=== PATIENT | female | born 1955 | race African-American/Black ===

== ENCOUNTER 2019-08-11 11:44 | Inpatient (IN) | payer OTHER ==
[~2019-08-11] VITALS: Ht 152.4 cm; Wt 70.8 kg
--- NOTE | ~2019-08-11 | P ---
[facility] [place] [address] PROCEDURE REPORT Name: MOUNA RODRIGUEZ Room #: [address] [place] [address] IN M.R.#: [id number] Admission: 08/11/19 Attend Phys: Nir Manzo MD Discharge: 08/15/19 Date of : 51 Report #: [id number] THIS REPORT FOR: //name// CC: Carolyn GALICIA unknown Nir Manzo RIGHT FEMORAL ARTERIAL LINE PLACEMENT REASON: Sepsis and hypotension. SUBJECTIVE: The patient is in the ICU. The right groin was prepped and draped in a sterile manner. I placed a 5-Nepali right femoral sheath through the right femoral artery. This was done without complication. This was sutured in place. The patient tolerated this procedure well. IMPRESSION: Successful right femoral arterial line placement (for sepsis and lactic acidosis). By: [id number] /gael
--- NOTE | ~2019-08-11 | HC ---
[facility] [place] [address] CONSULTATION Name: MOUNA RODRIGUEZ Room #: [facility] IN M.R.#: [id number] Admission: 08/11/19 Attend Phys: Nir Manzo MD Discharge: 08/15/19 Date of : 51 Report #: [id number] THIS REPORT FOR: //name// CC: Carolyn House FAM unknown Nir Manzo HISTORY OF PRESENT ILLNESS: The patient is a 63-year-old female who had been admitted here a few days ago having some progressive dyspnea, shortness of breath and now significant lactic acidosis, intubated somewhat urgently and a troponin of 11 with nonspecific EKG changes. She is in acute renal failure with no urinary output. Markedly elevated lactate level and a potassium of 5.2. Nephrology is also consulted. She was initially admitted with community-acquired pneumonia. Obviously, has failed until this point, had been on BiPAP and now intubated. It was felt that she had impending sepsis and now in fact is septic. MEDICATIONS: Her home medications have been Micardis, amlodipine, multivitamins, Mucinex, simvastatin, albuterol and chlorthalidone. PAST MEDICAL HISTORY: Positive for hypertension, hypercholesterolemia, some DJD, some COPD. ALLERGIES: No known drug allergies. SOCIAL HISTORY: She was hospitalized in [place] , but her brother is the [facility] and he lives down here, so she subsequently transferred here on the . I am not able to obtain alcohol or tobacco use. FAMILY HISTORY: I am not able to obtain. REVIEW OF SYSTEMS: I am not able to obtain. PHYSICAL EXAMINATION: GENERAL: She is sedated. She is intubated. She is on pressor support now. VITAL SIGNS: Pulse is 130s, blood pressure 100/90-100 systolic. HEENT: Eyes show xanthelasmas. Pharynx has dry mucous membranes. She is intubated. NECK: Has upstroke slightly diminished, cannot evaluate for JVD. LUNGS: Clear anteriorly. Distally, diminished in the bases on the lateral bases. CARDIOVASCULAR: Tachycardic, S1 and S2 distant. ABDOMEN: Slightly distended. There is retraction. EXTREMITIES: Reveal trace of edema. Distal pulses diminished. NEUROLOGIC: Sedated and hypotensive. SKIN: Appears to be warm and dry. There are no open wounds. [facility] [address] [place] [address] CONSULTATION Name: MOUNA RODRIGUEZ Room #: [address] [place] [address] IN M.R.#: [id number] Admission: 08/11/19 Attend Phys: Nir Manzo MD Discharge: 08/15/19 Date of : 51 Report #: [id number] ASSESSMENT: 1. Sepsis with lactic acidosis. 2. Hypotension secondary to above, requiring pressor support. 3. Elevated troponin of unclear significance (echo from 3 days ago showed left ventricular hypertrophy and preserved left ventricular function. We will repeat abbreviated echo. 4. Hypertension. 5. Community-acquired pneumonia. RECOMMENDATIONS AND PLAN: EKG has nonspecific changes. I will repeat an abbreviated echo in the morning, then EKG. We are going to place a femoral art-line to help with the pressor support. Dr. Sharma of Nephrology spoke with the brother who is DPOA. I believe we are still treating. I am not sure of the code status, but we will clear this up. No indication to take her to the catheterization lab at this time. We will repeat troponin, EKG and echo in the a.m. Certainly, the patient is in grave positon right now. Her prognosis is certainly guarded. I will follow with you. Thank you for allowing me to participate in the care of this patient. By: [id number] /nt
--- NOTE | ~2019-08-11 | HC ---
[facility] [place] [address] CONSULTATION Name: MOUNA RODRIGUEZ Room #: [address] [place] [address] IN M.R.#: [id number] Admission: 08/11/19 Attend Phys: Nir Manzo MD Discharge: 08/15/19 Date of : 51 Report #: [id number] THIS REPORT FOR: //name// CC: Carolyn House FAM unknown Nir Manzo DATE OF SERVICE: 08/15/2019 NEPHROLOGY CONSULTATION REASON FOR CONSULTATION: Acute kidney injury with oligoanuria. HISTORY OF PRESENT ILLNESS: This is a 63-year-old female who has a recent history of pneumonia. This was originally diagnosed as acute community-acquired pneumonia and she was admitted to the hospital in [place], [place], on 08/07/2019. There was some report that she started improving for a while after that, but there was concern from family including her brother who lives here in [place] and he is her medical durable power of admitted attorneys. She was transferred here to the [place] to [facility] for additional care. She was admitted here on 08/11/2019. She was continued on broad-spectrum antibiotics. She eventually had a thoracentesis, which showed significant amount of red blood cells. Cultures have been negative. She was about the same, maybe slightly improved until yesterday when she began having increasing oxygenation requirements and increasing dyspnea. Also, during that time, she developed some hypotension. Review of her vital signs shows that blood pressures were good yesterday, but this morning they began dropping. She was admitted to the Intensive Care Unit this morning and intubated. She began developing pressures in the 80s range, sometimes in the 90s range, occasionally as low as the 70s. She was given some additional IV fluid. She was started on some Levophed. She is now on 24 mcg of Levophed. She was intubated and then began having some frothy bloody pulmonary secretions. She underwent bronchoscopy with Dr. Gomez, who reported she did not have a lot of purulent secretions. She did not have much in the way of pulmonary edema secretions at that time either. Over the past couple of hours, she has continued to deteriorate. She has developed the labs as noted below. That includes a rising creatinine level, worsening metabolic acidosis with an increasing lactate level. She continues to have leukocytosis as noted. She has now been put on meropenem and linezolid for even broader antibiotic coverage. PAST MEDICAL HISTORY: Hypertension, and looks like at home, she had been on a combination of telmisartan and amlodipine and also some chlorthalidone. Her brother tells me she was given a diagnosis of chronic kidney disease stage 3, which would be fitting with her creatinine level of 1.2 prior to admission. No previous cardiac history and she had an echocardiogram done earlier on admission, which actually showed mild LVH, but fairly good left ventricular [address] [address] CONSULTATION Name: MOUNA RODRIGUEZ Room #: 243-[facility] IN M.R.#: [id number] Admission: 08/11/19 Attend Phys: Nir Manzo MD Discharge: 08/15/19 Date of : 51 Report #: [id number]. MEDICATIONS: At this time include Levophed 24 mcg per minute, linezolid and meropenem. She has gotten some IV bicarbonate. She has also gotten some Solu-Medrol. She got some sedation with her intubation. I cannot find that she has received any contrast exposures. SOCIAL HISTORY: The patient is single, lives in [place], [place]. Her brother, who is her medical power of admitted attorneys, lives here in [place], which is why she got transferred here. REVIEW OF SYSTEMS: Only positive for what are listed above. She is unable to provide me any other history because obviously she is sedated and intubated currently. PHYSICAL EXAMINATION: GENERAL: Acutely ill-appearing 63-year-old female. She is sedate on the ventilator. HEENT: Pupils are 4 mm and reactive. Sclerae nonicteric. She is orally intubated. CHEST: Shows coarse breath sounds with rales bilaterally and diffusely. HEART: Has a regular tachycardia. ABDOMEN: Nondistended. Bowel sounds are absent. I cannot palpate or percuss any organomegaly or masses. They just did a scan of her bladder, which showed a Duarte catheter in place, but no urine. Renal ultrasound was done, which was unremarkable and I have reviewed those images. EXTREMITIES: Show vasoconstricted cool extremities. She has a trace bilateral lower extremity edema. She has diminished peripheral pulses. I see no rashes. RADIOLOGY DATA: Chest x-ray shows changes of pulmonary edema. LABORATORY DATA: From this afternoon, sodium 144; potassium 5.2; chloride 106; bicarbonate 18; BUN 31; creatinine 2.1, which was up from 1.2 24 hours ago. Glucose 149. AST yesterday 64. Today, calcium 8.7, phosphorus 2.2, magnesium 1.8, total protein 7.1, albumin 2.2. Lactate is up to 9.0. Troponin 11.38. White count 29.7; hemoglobin 8.8; hematocrit 27.2; platelets 63,000, down from 203. Differential on the white count is 67 neutrophils, 13 bands, 7 lymphs, 8 monos, 3 metamyelocytes, 2 myelocytes, 3 nucleated red cells. Most recent blood gas pH 7.105, pCO2 of 29.6, pO2 of 103.2, bicarbonate was only 9.1 on that calculated gas. Lactate is up to ____. ASSESSMENT: 1. Fulminant shock, most likely of a septic variety. White count is up. She has an increasing lactic acidosis due to underperfusion. She has had broadening of her antibiotic coverage. She is getting more acidotic and is more hemodynamically unstable. She has been hypotensive throughout the day, but is [facility] [address] [place] [address] CONSULTATION Name: MOUNA RODRIGUEZ Room #: [facility] IN M.R.#: [id number] Admission: 08/11/19 Attend Phys: Nir Manzo MD Discharge: 08/15/19 Date of : 51 Report #: [id number] on maximum Levophed now and we will add additional vasopressors as needed including vasopressin, uncertain if there is another etiology other than her pulmonary findings. Abdominal exam is rather unremarkable. 2. Acute renal failure with anuria today. She had good urine output prior to that. Creatinine level is increasing. Borderline hyperkalemia, again she is massively acidotic. I have given her another bolus of Lasix at 100 mg and we will see if she gets any response, but this lady will need dialysis including continuous renal replacement therapy. We will get her started on that tonight. We will try to get her stabilized a bit from both the blood pressure and acidosis standpoint. 3. Respiratory failure, now on the ventilator with pulmonary edema as her most recent change in this recent pneumonia and pleural effusion. PLAN: 1. Again, we will get a dialysis catheter put in her right now at the bedside. I will do that. We will then start her on some CRRT this evening. 2. I have discussed this. I spoke with her brother about this on the telephone and he agrees to proceed with the dialysis. We will follow along very closely with this critically ill patient. By: [id number] Saturnino Sharma MD /nt
[2019-08-11 12:22] VITALS: BP 147/89
[2019-08-11] MEDS ORDERED: CALCIUM 600 +1 EAC2 PO (13:15)
[2019-08-11] MEDS ORDERED: CHLORTHALIDONE25 MG PO (13:16)
[2019-08-11] MEDS ORDERED: FLONASE 0.05%50 MCG NARES (13:18)
[2019-08-11] MEDS ORDERED: MICARDIS 80 MG80 MG PO (13:23)
[2019-08-11] MEDS ORDERED: NORVASC5 M1 PO (13:25)
[2019-08-11] MEDS ORDERED: THERAPEUTIC M PO (14:19)
[2019-08-11] MEDS ORDERED: HAIR, SKIN & N1 EAC3 PO (14:21)
[2019-08-11] MEDS ORDERED: MUCINEX600 MG PO (14:21)
[2019-08-11] MEDS ORDERED: PROAIR HFA8.5 GM INH (14:22)
[2019-08-11] MEDS ORDERED: SIMVASTATIN80 MG PO (14:22)
--- NOTE | 2019-08-11 14:31 | NUR ---
INITIAL ASSESSMENT: JOAN reviewed chart and spoke with nursing and attending physician. Pt was a direct admission from [facility] today. Pt was transported via ambulance. SW met with pt at bedside due to questions regarding her insurance. Introduced role of SW. Pt is alert/orientated x 4. Pt reports she was admitted to the hospital in [place], [place] on 08/07. Pt states she was transferred her due to location to her brother, David. Pt was living at home alone in an apt. Pt was independent with ADLs and does not use any DME. Pt was not on O2 prior to hospitalization. Pt is on 5L continuously. Pt's PCP is Dr. Morris Darnell. SW asked for pt's insurance card to verify info in the computer. Pt presented [employer] HMO card and [employer]. Pt states she also has [place] Medicaid, but does not have that card with her. JOAN made copies and discussed with UR RN, who sent info to registration. Copy of cards on pt's chart. Pt states she is unsure of her discharge plan at this time. PT/OT ordered to evaluate pt. ID consulted due to pneumonia/sepsis. SW is following to assist as needed with discharge planning.
[2019-08-11 16:08] VITALS: BP 133/86
[2019-08-11 18:54] LABS: HEMATOCRIT 26.3 % (37.0-47.0); HEMOGLOBIN 8.4 gm/dL (12.0-15.0); MCH 27.3 pg (26.0-34.0); MCV 85.2 fL (80.0-100.0); RBC 3.09 mil/uL (4.20-5.00); RDW 13.9 % (10.5-14.5); WBC 13.8 thou/uL (4.0-11.0)
[2019-08-11 19:13] LABS: ALBUMIN 2.3 g/dL (3.4-5.0); CALCIUM 8.6 mg/dL (8.5-10.1); CREATININE 1.1 mg/dL (0.6-1.0); MAGNESIUM 1.2 mg/dL (1.8-2.4); POTASSIUM 3.4 mmol/L (3.5-5.1); TOTAL BILIRUBIN 0.5 mg/dL (<0.1-1.0)
[2019-08-11 19:14] LABS: TOTAL PROTEIN 6.7 g/dL (6.4-8.2)
[2019-08-11 19:22] VITALS: BP 141/81
--- NOTE | 2019-08-11 19:36 | NUR ---
VASCULAR ACCESS TEAM ORDER FOR PICC LINE PLACEMENT. PATIENT CONSENTED FOR PROCEDURE. R BRACHIAL VEIN WIDELY PATENT ON ULTRASOUND ASSESSMENT. PATIENT PREPPED AND DRAPED UNDER STERILE CONDITIONS. 3ML 1% LIDOCAINE GIVEN SUB Q INJECTION. VEIN CANNULATED WITH ONE ATTEMPT. GUIDEWIRE ADVANCED EASILY. VEIN DILATED. GUIDEWIRE REMOVED INTACT. 4FR DL PICC TRIMMED TO 37CM. INSERTED TO 37CM INTERNAL 0CM EXTERNAL. CXR READ BY RADIOLOGIST PICC TIP IN THE RIGHT ATRIUM. LINE RETRACTED TO THE SVC WITH 3CM EXTERNAL. BOTH LUMENS FLUSH AND DRAW EASILY. PATIENT TOLERATED PROCEDURE WELL. LINE RELEASED FOR IMMEDIATE USE TO RN.
[2019-08-11 19:37] LABS: TSH 1.296 uIU/mL (0.358-3.740)
--- NOTE | 2019-08-11 19:47 | NUR ---
PT admitted from [facility] for SOB, PNEUMONIA, pt is A&OX3, but pt is forgetful, pt is on o2 5L/MIN/NC, PT'vs and o2sat are stable, DRS have seeing pt, new order received, pt has new PICC line, pt has started iv ABX, pt will have US thoracentesis tomorrow, RN has reported to next shift to keep eye on pt.
[2019-08-11 23:47] VITALS: BP 151/88
--- NOTE | 2019-08-12 04:04 | NUR ---
ASSUMED CARE AT 1900. PT ALERT AND ORIENTED WITH INTERMITTENT CONFUSION. ON ABX FOR PNA. DENIES PAIN. VITALS STABLE. LABORED BREATHING WITH ACTIVITIES. SCHEDULED FOR A THORACENTESIS THIS AM. NPO SINCE MIDNIGHT. TACHY WITH ACTIVITIES. SLIGHT FEVER, TYLENOL 650 GIVEN. WILL CONTINUE TO MONITOR.
[2019-08-12 04:06] VITALS: BP 138/86
[2019-08-12 05:32] LABS: HEMATOCRIT 26.6 % (37.0-47.0); HEMOGLOBIN 8.4 gm/dL (12.0-15.0); MCHC 31.6 g/dL (28.0-37.0); MCV 85.4 fL (80.0-100.0); RBC 3.12 mil/uL (4.20-5.00); WBC 13.6 thou/uL (4.0-11.0)
[2019-08-12 05:41] LABS: APTT 37.8 Seconds (24.5-32.8); INR 1.4
[2019-08-12 05:51] LABS: CALCIUM 8.7 mg/dL (8.5-10.1); CREATININE 1.2 mg/dL (0.6-1.0); MAGNESIUM 1.2 mg/dL (1.8-2.4); POTASSIUM 3.5 mmol/L (3.5-5.1)
[2019-08-12 07:07] VITALS: BP 147/91
[2019-08-12 10:15] VITALS: BP 151/85
[2019-08-12 11:07] LABS: SOURCE RIGHT CHEST; TOTAL VOLUME 59 mL
[2019-08-12 11:08] LABS: CLARITY TURBID; COLOR RED
[2019-08-12 13:09] LABS: BF NUCLEATED CELLS 4136; BF RBC 1231606
[2019-08-12 13:40] LABS: BF MACROPHAGE 0; BF NEUTROPHILS 85
[2019-08-12 15:20] VITALS: BP 102/54
[2019-08-12 15:25] VITALS: BP 155/68
--- NOTE | 2019-08-12 15:44 | NUR ---
OJAN reviewed chart and spoke with nursing and attending physician. Pt had thoracentesis earlier today. Pt remains on IV abx. Therapy ordered to evaluate pt for recommendations for discharge. JOAN met with pt at bedside. Pt requested SW to call her brother to provide update. JOAN placed call to pt's brother, David. Introduced role of SW. David requested SW talk with his , Guerline. Per Guerline, pt was transferred to [facility] from [facility] for higher level of care. Pt's family chose [facility] due to location. Pt has lived away from for several years. Pt has a large extended family in area. Pt lives alone and has help from a caregiver, who will be moving away soon. Pt's family have tried for a long time to convince pt to move back to . Pt's sister in law states that they will work with pt to move to , if pt is agreeable. Family is hoping pt will be able to go to a SNF at time of discharge, to allow them time to move pt from [place]. JOAN explained that insurance will need to authorize post-acute placement. Pt's GEORGETTE states that pt does have [place] Medicaid. Pt is single. Never and does not have children. Pt does not have a DPOA in place. Pt has not worked for many years. Pt does receive social security. JOAN is following to assist as needed with discharge planning.
--- NOTE | 2019-08-12 16:29 | NUR ---
PATIENT DEMOGRAPHICS FAXED TO [facility]. ASSISTANCE NEEDED IN TRANSFERRING PATIENTS [place] BENEFITS TO [place] MEDICAID, IF POSSIBLE. OR, PATIENT IN NEED OF ASSISTANCE WITH [place] MEDICAID APPLICATION. UNIT SW AWARE.
--- NOTE | 2019-08-12 18:49 | NUR ---
PATIENT UP SITTING BY SIDE OF BED. SHE IS ALERT TO PLACE AND SITUATION. CONT ON ABT. SHE DENIES PAIN. STATES SHE FEELS MUCH BETTER AFTER THE THORACENTESIS. WILL CONT WITH PLAN OF CARE.
[2019-08-12 19:22] VITALS: BP 113/81
[2019-08-13 04:01] VITALS: BP 98/59
--- NOTE | 2019-08-13 04:26 | NUR ---
PATIENT IS PROGRESSING SLOWLY IN HER CARE PLAN. VITAL SIGNS STABLE WITH PATIENT HAVING NO COMPLAINTS OF PAIN OR NAUSEA. FULLY ORIENTED BUT FORGETFUL, PATIENT IS ABLE TO CALL FOR NEEDS APPROPRIATELY. BREATHING STABLE ON FIVE LITERS NASAL CANNULA EVIDENCED BY ASSESSMENT AND SPOT OXYGENATION CHECKS. UP MULTIPLE TIMES WITH ASSISTANCE TO BEDSIDE COMMODE INCIDENT FREE, PATIENT IS CONSIDERED A HIGH FALL RISK. CONTINUE PLAN OF CARE.
[2019-08-13 05:11] LABS: HEMATOCRIT 22.1 % (37.0-47.0); MCH 26.9 pg (26.0-34.0); MCHC 31.8 g/dL (28.0-37.0); MCV 84.7 fL (80.0-100.0); PLATELET COUNT 195 thou/uL (150-400); RBC 2.61 mil/uL (4.20-5.00); WBC 12.4 thou/uL (4.0-11.0)
[2019-08-13 05:26] LABS: CALCIUM 8.1 mg/dL (8.5-10.1); CREATININE 1.2 mg/dL (0.6-1.0); MAGNESIUM 1.4 mg/dL (1.8-2.4); POTASSIUM 3.3 mmol/L (3.5-5.1); TOTAL BILIRUBIN 0.5 mg/dL (<0.1-1.0); TOTAL PROTEIN 5.9 g/dL (6.4-8.2)
[2019-08-13 06:51] LABS: ABSOLUTE NEUTROPHILS 9.2 thou/uL (1.4-8.2); METAMYELOCYTES 2 %; PLATELET ESTIMATE NORMAL
[2019-08-13 07:49] VITALS: BP 105/61
[2019-08-13 09:18] LABS: HEMOGLOBIN 6.8 gm/dL (12.0-15.0); WBC 11.8 thou/uL (4.0-11.0)
[2019-08-13 09:19] LABS: HEMATOCRIT 21.3 % (37.0-47.0); MCH 27.2 pg (26.0-34.0); MCHC 32.1 g/dL (28.0-37.0); MCV 84.8 fL (80.0-100.0); RBC 2.51 mil/uL (4.20-5.00)
[2019-08-13 09:31] LABS: SOURCE THORACENTESIS
[2019-08-13 11:44] VITALS: BP 111/70
[2019-08-13 14:33] VITALS: BP 145/85
--- NOTE | 2019-08-13 15:14 | NUR ---
SW reviewed chart and spoke with nursing and attending physician. Pt had IVC filter placed earlier today. SW met with pt at bedside to discuss post-acute plans. SW left in-network SNF list for pt to review with her family. Pt states that she does not want to be in a [place]. SW explained that initially pt would start out as skilled and then would transition to the level of care that she needs. JOAN is folloiwng to assist as needed with discharge planning.
[2019-08-13 15:21] VITALS: BP 123/64; BP 129/82
--- NOTE | 2019-08-13 16:43 | 2DMMODE ---
[facility] [address] [place] [address] 2 D/M-MODE ECHOCARDIOGRAM Name: RODRIGUEZMOUNA Room #: 357-P ADM IN M.R.#: [id number] Admission: 08/11/19 Attend Phys: Nir Manzo, Discharge: Date of : 51 Report #: [id number] THIS REPORT FOR: //name// APPROVED REPORT Study performed: 08/13/2019 13:26:38 EXAM: Comprehensive 2D, Doppler, and color-flow Echocardiogram Patient Location: Bedside Room #: 357 Status: routine BSA: 1.64 HR: 108 bpm BP: 105/61 mmHg Rhythm: Tachycardia Other Information Study Quality: Good Indications Sepsis Dyspnea Hypertension/HDD DVT 2D Dimensions RVDd: 33.83 mm IVSd: 10.23 (7-11mm) LVOT Diam: 18.05 (18-24mm) LVDd: 45.56 mm PWd: 10.22 (7-11mm) Ascending Ao: 28.96 (22-36mm) LVDs: 28.94 (25-40mm) Aortic Root: 30.33 mm IVC: 14.00 mm Volumes Left Atrial Volume (Systole) Single Plane 4CH: 46.70 mL Single Plane 2CH: 30.42 mL LA ESV Index: 26.00 mL/m2 Aortic Valve AoV Peak Mert.: 1.86 m/s AO Peak Gr.: 13.82 mmHg LVOT Max P.69 mmHg LVOT Max V: 1.29 m/s MARIO Vmax: 1.78 cm2 Mitral Valve [facility] [email or web address] [address] 2 D/M-MODE ECHOCARDIOGRAM Name: MOUNA RODRIGEUZ Room #: 357-[facility] IN ..#: [id number] Admission: 08/11/19 Attend Phys: Nir Manzo, Discharge: Date of : 51 Report #: [id number] E/A Ratio: 0.9 MV Decel. Time: 174.68 ms MV E Max Mert.: 1.20 m/s MV A Mert.: 1.30 m/s MV PHT: 50.66 ms IVRT: 108.42 ms Pulmonary Valve PV Peak Mert.: 1.23 m/s PV Peak Gr.: 6.03 mmHg Pulmonary Vein P Vein S: 0.49 m/s P Vein A: 0.40 m/s P Vein D: 0.34 m/s P Vein A Dur.: 78.4 msec P Vein S/D Ratio: 1.44 Tricuspid Valve TR Peak Mert.: 3.35 m/s TR Peak Gr.: 44.97 mmHg PA Pressure: 50.00 mmHg Left Ventricle The left ventricle is normal size. There is normal LV segmental wall motion. There is normal left ventricular wall thickness. The left ventricular systolic function is normal. The left ventricular ejection fraction is within the normal range. LVEF is 65%. Mild diastolic dysfunction is present (impaired relaxation pattern). Right Ventricle The right ventricle is normal size. The right ventricular systolic function is normal. Atria The left atrium size is normal. The right atrium size is normal. Aortic Valve The aortic valve is sclerotic. Mild aortic regurgitation. There is no aortic valvular stenosis. Mitral Valve The mitral valve is normal in structure. There is no mitral valve regurgitation noted. No evidence of mitral valve stenosis. Tricuspid Valve The tricuspid valve is normal in structure. There is trace tricuspid [facility] [address] [place] [address] 2 D/M-MODE ECHOCARDIOGRAM Name: MOUNA RODRIGUEZ Room #: 357-[facility] IN .R.#: [id number] Admission: 08/11/19 Attend Phys: Nir Manzo, Discharge: Date of : 51 Report #: [id number] regurgitation. Estimated PAP 50 mmHg. There is moderate pulmonary hypertension. Pulmonic Valve The pulmonary valve is normal in structure. Trace pulmonic regurgitation. Great Vessels The aortic root is normal in size. IVC is normal in size and collapses >50% with inspiration. Pericardium Moderate circumferential pericardial effusion without tamponade physiology. <Conclusion> The left ventricular systolic function is normal. There is normal LV segmental wall motion. LVEF is 65%. Mild diastolic dysfunction The aortic valve is sclerotic. Mild aortic regurgitation, no stenosis. The mitral valve is normal in structure. No mitral valve regurgitation. There is trace tricuspid regurgitation. Estimated pulmonary artery pressure of 50 mmHg. Moderate circumferential pericardial effusion without tamponade physiology. <ELECTRONICALLY SIGNED> By: Nils Cuellar MD, FACC 08/13/191642 42 42 Nils Cuellar MD, FACC /INF
[2019-08-13 17:07] LABS: BODY FLUID ALBUMIN 2.1 g/dL (Not Estab.); BODY FLUID AMYLASE 28 U/L (()); BODY FLUID GLUCOSE 74 mg/dL (()); BODY FLUID LDH 292 IU/L (()); BODY FLUID PROTEIN 3.9 g/dL (())
--- NOTE | 2019-08-13 17:32 | NUR ---
LUNGS DIMINISHED...O2 4-5L..DOES NOT WEAR HOME O2...SPUTUM SENT..
[2019-08-13 19:20] VITALS: BP 129/82
--- NOTE | 2019-08-13 19:51 | NUR ---
WITHDREW PICC 2CM AND XRAY COMPLETE- NOW PICC TIP AT [facility]
[2019-08-13 19:55] LABS: HEMATOCRIT 24.8 % (37.0-47.0)
[2019-08-14 03:45] VITALS: BP 149/90
[2019-08-14 06:09] LABS: HEMATOCRIT 26.6 % (37.0-47.0); HEMOGLOBIN 8.7 gm/dL (12.0-15.0); MCHC 32.8 g/dL (28.0-37.0); MCV 85.6 fL (80.0-100.0); RBC 3.11 mil/uL (4.20-5.00); RDW 14.5 % (10.5-14.5); WBC 19.2 thou/uL (4.0-11.0)
[2019-08-14 06:22] LABS: ALBUMIN 2.2 g/dL (3.4-5.0); CALCIUM 8.6 mg/dL (8.5-10.1); CREATININE 1.2 mg/dL (0.6-1.0); MAGNESIUM 2.1 mg/dL (1.8-2.4); PHOSPHORUS 2.2 mg/dL (2.5-4.9); TOTAL BILIRUBIN 0.8 mg/dL (<0.1-1.0); TOTAL PROTEIN 7.1 g/dL (6.4-8.2)
[2019-08-14 08:00] VITALS: BP 154/90
[2019-08-14 11:30] VITALS: BP 167/95
[2019-08-14 12:30] LABS: HCO3 20.5 mmol/L (22.0-26.0); PCO2 27.7 mmHg (35.0-45.0); PO2 54.9 mmHg (80.0-100.0); pH 7.488 (7.360-7.450); sO2 91.4 % (92.0-98.0)
--- NOTE | 2019-08-14 14:41 | NUR ---
SW reviewed chart and spoke with nursing and attending physician. Pt's O2 needs increased earlier today. Pt potentially transferring to ICU. Psych consult requested to evaluate pt's competency, as pt has made various statements about her wishes for plan of care and discharge goals. SW met with pt's brother, David. Pt's brother asked SW to become pt's DPOA. SW explained that pt will be evaluated by psych to determine if pt is able to appoint a DPOA for healthcare. JOAN explained that [facility] can assist with DPOA for healthcare only. Pt's brother verbalized understanding. SW is following to assist as needed with discharge planning.
[2019-08-14 14:59] VITALS: BP 143/64
--- NOTE | 2019-08-14 18:00 | NUR ---
PT STARTED SHIFT ON 4L...AROUND NOON SHE WAS SOA AND RT TITRATED HER TO 10L...DR VENTURA/NATHANAEL NOTIFIED...ABG'S ORDERED...BIPAP PLACED FOR A FEW HOURS THEN TITRATED TO OPTIFLOW 50% FIO2 WITH 45% FLOW...CODE STATUS CLARIFED AND SHE WANTS TO BE A FULL CODE...WILL MONITOR CLOSELY..
[2019-08-14 19:20] VITALS: BP 148/89
[2019-08-14 23:59] VITALS: BP 144/88
[2019-08-15] VITALS (96 sets, daily range): BP systolic 37–174; BP diastolic 11–116
--- NOTE | 2019-08-15 04:24 | NUR ---
PATIENT IS SLOWLY ADVANCING IN HER CARE PLAN. VITAL SIGNS STABLE WITH PATIENT HAVING NO COMPLAINTS OF PAIN OR NAUSEA. BREATHING STABLE ON HIGH LEVEL OXYGEN VIA OPTIFLOW EVIDENCED BY ASSESSMENT AND CONTINUOUS SATURATION MONITOR. FULLY ORIENTED BUT FORGETFUL, PATIENT IS ABLE TO CALL APPROPRIATELY FOR NEEDS. UP MULTIPLE TIMES TO BEDSIDE COMMODE WITH ASSISTANCE INCIDENT FREE. CONTINUE PLAN OF CARE.
[2019-08-15 04:34] LABS: HEMATOCRIT 27.7 % (37.0-47.0); HEMOGLOBIN 8.9 gm/dL (12.0-15.0); MCH 27.3 pg (26.0-34.0); MCHC 32.2 g/dL (28.0-37.0); MCV 84.7 fL (80.0-100.0); RBC 3.27 mil/uL (4.20-5.00); RDW 14.4 % (10.5-14.5); WBC 19.6 thou/uL (4.0-11.0)
[2019-08-15 04:45] LABS: CALCIUM 8.9 mg/dL (8.5-10.1); CREATININE 1.4 mg/dL (0.6-1.0); MAGNESIUM 1.8 mg/dL (1.8-2.4); POTASSIUM 3.7 mmol/L (3.5-5.1)
[2019-08-15 08:33] LABS: BE(vivo) -6.9 mmol/L (-2 to +3); HCO3 16.1 mmol/L (22.0-26.0); PCO2 25.5 mmHg (35.0-45.0); pH 7.417 (7.360-7.450); sO2 94.3 % (92.0-98.0)
--- NOTE | 2019-08-15 10:42 | NUR ---
Assumed care approx. 0700 this AM. While giving nurse to nurse report, RT changed patient from high flow to bipap. Patient noted to be tachypneic and tachycardic. Night RN called Dr. Gomez to notify him of the patient deteriotating. STAT ABG done with critical lactate that resulted. Dr. Whitfield DEL[employer] notified of result verbally in person. Dr. Gomez gave orders to transfer patient to ICU. Patient taken to ICU with nursing staff and RT. Face to face nursing report given to Thuan (RUG DRY ROOM ATTENDANT). Family notified by Dr. Gomez. All belongings taken with patient. Tele removed and brought back to 3W unit.
--- NOTE | 2019-08-15 10:48 | NUR ---
Pt TRANSFERRED TO ICU. WILL PLACE ON HOLD AND AWAIT NEW ORDERS TO RESUME WHEN APPROPRIATE
[2019-08-15 11:24] LABS: HCO3 20.2 mmol/L (22.0-26.0); PCO2 33.2 mmHg (35.0-45.0); PO2 93.1 mmHg (80.0-100.0); pH 7.401 (7.360-7.450); sO2 97.2 % (92.0-98.0)
--- NOTE | 2019-08-15 13:33 | NUR ---
Pt TRANSFERRED TO ICU. Pt ON HOLD FOR O.T. NEED NEW DOCTOR ORDERS WHEN/IF APPROPRIATE.
[2019-08-15 14:06] LABS: CALCIUM 8.7 mg/dL (8.5-10.1); CREATININE 2.1 mg/dL (0.6-1.0)
[2019-08-15 14:07] LABS: POTASSIUM 5.2 mmol/L (3.5-5.1)
--- NOTE | 2019-08-15 14:07 | PATH ---
[facility] [place] [address] PATHOLOGY RPT PROCEDURE Name: MOUNA RODRIGUEZ Room #: 243-P ADM IN M.R.#: [id number] Admission: 08/11/19 Date of : 51 Discharge: Report #: [id number] Path Case #: [id number] Note [facility] Accession Number: [id number] TESTS RESULT FLAG UNITS REF RANGE LAB Clinician Provided Cytology Information No. of containers..01 Other (Miscellaneous) Source: 01 PLEURAL FLUID DIAGNOSIS: 02 PLEURAL FLUID NEGATIVE FOR MALIGNANT CELLS. REACTIVE MESOTHELIAL CELLS ARE PRESENT. THIS INTERPRETATION INCLUDES EVALUATION OF A CELL BLOCK. NUMEROUS MACROPHAGES IN THE BACKGROUND. COMMENT: Multiple properly controlled immunohistochemical stains are performed on the cell block. Yevgeniy-EP4 shows no reactivity confirming the lack of malignant cells. TTF-1 shows no nuclear reactivity amongst any of the cells. Calretinin and desmin are reactive within the mesothelial cells compatible with reactive mesothelial cells. HBME1 shows no reactivity. CD68 shows reactivity within the numerous macrophages present within the cell block. Findings support a reactive process. Dr. Nelson Bazzi has seen this case and concurs with my diagnosis. (IUV:pit; 08/14/2019) Pathologist ICD10: 02 J90 Signed out by: 02 Nakita Garcia MD, Pathologist NPI- [id number] Performed by: Yasmeen Schultz, Appointment Manager ([facility]) Gross description: 01 12ML, KRISTA MOOKIE /CYNTHIA 08/14/2019 1348 Local FLAG LEGEND: L-Low Normal,H-High Normal,LL-Alert Low,HH-Alert High <-Panic Low,>-Panic High,A-Abnormal,AA-Critical Abnormal Performed at: [facility] [address] [address] Humberto High MD, 02 LCAMO [facility] [address] [place] [address] PATHOLOGY RPT PROCEDURE Name: MOUNA RODRIGUEZ Room #: 243-P [facility] IN M.R.#: [id number] Admission: 08/11/19 Date of : 51 Discharge: Report #: [id number] Path Case #: [id number] [address] [place] [address] Nakita Garcia MD, Specimen Comment: A courtesy copy of this report has been sent to [phone] Specimen Comment: [id number] Specimen Comment: Report sent to Performed at: [address] [facility], [place], [place] [id number] MD Humberto High MD Phone: [phone]
[2019-08-15 14:14] LABS: HEMATOCRIT 27.2 % (37.0-47.0); HEMOGLOBIN 8.8 gm/dL (12.0-15.0); MCH 27.4 pg (26.0-34.0); MCHC 32.4 g/dL (28.0-37.0); MCV 84.5 fL (80.0-100.0); RBC 3.22 mil/uL (4.20-5.00); RDW 15.3 % (10.5-14.5); WBC 29.7 thou/uL (4.0-11.0)
--- NOTE | 2019-08-15 14:44 | NUR ---
Pt transferred to ICU this morning from [facility]. JOAN spoke with Sarah Ross RN at [facility], regarding additional SNF options. List provided previously were for [place] facilities: [facility], [facility], [facility], [facility]. SW requested [place] facilities. The only two SNFs in a 60-mile radius are [facility] and [facility] in [place], [place]. JOAN is following to assist as needed with discharge planning.
[2019-08-15 15:22] LABS: METAMYELOCYTES 3 %; NUCLEATED RBCS 3 /100WBC
[2019-08-15 15:23] LABS: MYELOCYTES 2 %
[2019-08-15 15:24] LABS: ABSOLUTE NEUTROPHILS 23.8 thou/uL (1.4-8.2); PLATELET COUNT 63 thou/uL (150-400)
[2019-08-15 15:25] LABS: BURR CELLS FEW
[2019-08-15 15:26] LABS: POIKILOCYTOSIS SLIGHT
[2019-08-15 16:44] LABS: BE(vivo) -19.1 mmol/L (-2 to +3); HCO3 9.1 mmol/L (22.0-26.0); PCO2 29.6 mmHg (35.0-45.0); PO2 103.2 mmHg (80.0-100.0); sO2 95.7 % (92.0-98.0)
[2019-08-15 16:48] LABS: pH 7.105 (7.360-7.450)
--- NOTE | 2019-08-15 17:37 | NUR ---
VAT CONSULTED FOR A TL PICC FOR THIS PT WITH MORE ACCESS NEEDED THAN HER CURRENT DLPICC. TIME OUT WITH RN AT BS. 5FRTLPICC PLACED LUABRACHIAL. CXR REVEALS THE TIP AT THE [facility] AND RELEASED FOR USE. FOR DETAILS PLEASE SEE THE NI
--- NOTE | 2019-08-15 20:28 | NUR ---
Patient was brought down to ICU via bed by [address] Gomez was on unit waiting for her to come. She was on bipap. He put in orders for intubation and the medications he wanted given. Under his direction, medications were given. He expressed to start propofol. Post intubation a chest xray was obtained. Propofol was started per Dr. Whitfield orders. Patient blood pressure became inadequate with map<60mmhg. He expressed to start Levophed. This was done. A whitfield was placed with no urine output. Bladder scan was peformed twice with 2mls noted to be the volume in her bladder. This was informed to Dr. Gomez who was still on the unit. Next he ordered a fluid bolus which was started. After it was started and infused a bit patient oxygenation droped with o2 sat in the 60s. Respiratory therapy was called. He ordered to stop the propofol, prepare for a bronchoscopy, stop the fluid bolus and give versed as ordered. This was performed as he ordered. A new picc line was placed in the left arm, triple lumen for more access. Then labs were sent, critical test results were called. Dr. Gomez came back and performed Bronchoscopy. Patients vital signs were labile throughout the day, with pressure readings from sbp80's to sbp 180's. Zero urine output was noted to physician who consulted renal physician. Cardiac enzymes were sent secondary to tachycardia and patients deterioration. Labs noted to physician and cardiology consult obtained as well as ekg. Nurse showed ekg to renal and cardiac physician. Cardiac physician placed a femoral arterial line for more accurate blood pressure reading. Next watch supervisor placed a dialysis catheter in left femoral area for planned crrt. While Wader Boot Top Assembler was still in area, patients heart rate dropped and blood pressure dropped into the sbp 40 range, with heart rate in the 40's. CPR was initiated secondary to lack of pulse and a code blue was called at 1740. Wader Boot Top Assembler ran the code and then was assisted by the code team upon their arrival. See code blue flow sheet. She was coded multiple series/times. Family arrived and hospitalist talked with family. After multiple rounds without obtaining a pulse, the physician called the code. Family is currently here and expressed she fought to make it but she was tired. Code Blue efforts terminated and time of was 1850.
[2019-08-15 22:09] LABS: ADENOVIRUS Negative (Negative); INFLUENZA A Negative (Negative); INFLUENZA B Negative (Negative); METAPNEUMOVIRUS Negative (Negative); PARAINFLUENZA 1 Negative (Negative); PARAINFLUENZA 2 Negative (Negative); PARAINFLUENZA 3 Negative (Negative); RHINOVIRUS Negative (Negative); RSV A Negative (Negative); RSV B Negative (Negative)
--- NOTE | 2019-08-18 15:58 | EKG ---
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
--- NOTE | 2019-08-18 15:59 | EKG ---
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
[2019-08-18 19:07] LABS: ANA INTERPRETATION Negative (())
== END 2019-08-15 18:50 | DRG 853 ==
LOC: 3W 11:44 → ICU 12:28 → 3W 12:28 → ICU 08-15 09:18
PROVIDERS: Internal Medicine; Nurse Practitioner Family; Pediatrics; Specialist; ADMIT Internal Medicine
PROC: 04HY32Z Insertion of Monitoring Device into Lower Artery, Percutaneous Approach (ICD-10-PCS; principal; 2019-08-11)
PROC: 0W993ZZ Drainage of Right Pleural Cavity, Percutaneous Approach (ICD-10-PCS; 2019-08-12)
PROC: 06H03DZ Insertion of Intraluminal Device into Inferior Vena Cava, Percutaneous Approach (ICD-10-PCS; 2019-08-13)
PROC: 0BD68ZX Extraction of Right Lower Lobe Bronchus, Via Natural or Artificial Opening Endoscopic, Diagnostic (ICD-10-PCS; 2019-08-15)
PROC: 5A1935Z Respiratory Ventilation, Less than 24 Consecutive Hours (ICD-10-PCS; 2019-08-15)
PROC: 0B9D8ZX Drainage of Right Middle Lung Lobe, Via Natural or Artificial Opening Endoscopic, Diagnostic (ICD-10-PCS; 2019-08-15)
PROC: 06HY33Z Insertion of Infusion Device into Lower Vein, Percutaneous Approach (ICD-10-PCS; 2019-08-15)
PROC: 04HK33Z Insertion of Infusion Device into Right Femoral Artery, Percutaneous Approach (ICD-10-PCS; 2019-08-15)
PROC: 5A09357 Assistance with Respiratory Ventilation, Less than 24 Consecutive Hours, Continuous Positive Airway Pressure (ICD-10-PCS; 2019-08-15)
PROC: 0BH18EZ Insertion of Endotracheal Airway into Trachea, Via Natural or Artificial Opening Endoscopic (ICD-10-PCS; 2019-08-15)
DX: A41.9 Sepsis, unspecified organism (principal); J18.9 Pneumonia, unspecified organism; J96.01 Acute respiratory failure with hypoxia; R65.21 Severe sepsis with septic shock; I21.9 Acute myocardial infarction, unspecified; N17.9 Acute kidney failure, unspecified; J90 Pleural effusion, not elsewhere classified; E44.0 Moderate protein-calorie malnutrition; I82.4Z1 Acute embolism and thrombosis of unspecified deep veins of right distal lower extremity; E78.00 Pure hypercholesterolemia, unspecified; M19.90 Unspecified osteoarthritis, unspecified site; J44.9 Chronic obstructive pulmonary disease, unspecified; R79.89 Other specified abnormal findings of blood chemistry; I12.9 Hypertensive chronic kidney disease with stage 1 through stage 4 chronic kidney disease, or unspecified chronic kidney disease; N18.3 Chronic kidney disease, stage 3 (moderate); E78.5 Hyperlipidemia, unspecified; D64.9 Anemia, unspecified; Z79.899 Other long term (current) drug therapy; Z87.01 Personal history of pneumonia (recurrent); Z68.30 Body mass index [BMI] 30.0-30.9, adult
CPT/HCPCS: 10879; 27000